=== PATIENT | female | born 1945 | race African-American/Black ===

== ENCOUNTER 2020-08-06 07:17 | Day surgery (SDC) | payer MEDICARE, MEDICAID ==
[~2020-08-06] VITALS: Ht 154.9 cm; Wt 127.3 kg
[2020-08-06 07:37] LABS: BASOPHILS 0.2 % (0-2); EOSINOPHILS 2.7 % (0-7); HEMATOCRIT 40.3 % (36.0-48.0); IMMATURE GRANULOCYTES 0.2 % (0-5); LYMPHOCYTE ABS# 1.67 10x3/uL (1.18-3.74); LYMPHOCYTES 36.9 % (15-50); MCH 27.6 pg (26.0-34.0); MCHC 32.3 g/dL (31.0-37.0); MCV 85.6 fL (80.0-100.0); MEAN PLATELET VOLUME 11.9 fL (7.4-10.4); MONOCYTES 10.6 % (2-11); NEUTROPHIL ABS# 2.23 10x3/uL (1.56-6.13); NEUTROPHILS 49.4 % (40-80); PLATELET COUNT 224 10x3/uL (130-400); RBC 4.71 10x6/uL (4.00-5.40); WBC 4.5 10x3/uL (4.8-10.8)
[2020-08-06 07:56] LABS: APTT 25.8 SECONDS (22.8-39.4); INR 1.14 (0.85-1.17); PROTIME 13.5 SECONDS (11.6-15.0)
[2020-08-06] MEDS ORDERED: ALBUTEROL SULF8.5 GM (07:59)
[2020-08-06] MEDS ORDERED: FUROSEMIDE40 MG (08:00)
[2020-08-06] MEDS ORDERED: METOPROLOL TART50 MG (08:00)
[2020-08-06] MEDS ORDERED: VOLTAREN100 GM ×2 (08:01→08:03)
[2020-08-06] MEDS ORDERED: FLUCONAZOLE150 MG (08:01)
[2020-08-06] MEDS ORDERED: PENICILLIN V P500 MG (08:02)
[2020-08-06] MEDS ORDERED: ZOFRAN ODT4 MG/UDTAB (08:02)
[2020-08-06] MEDS ORDERED: ULTRAM50 MG (08:03)
[2020-08-06] MEDS ORDERED: CLONIDINE HCL0.2 MG (08:03)
[2020-08-06] MEDS ORDERED: ALDACTONE25 MG (08:04)
[2020-08-06] MEDS ORDERED: PROTONIX40 MG (08:04)
[2020-08-06] MEDS ORDERED: LIPITOR40 MG (08:04)
[2020-08-06] MEDS ORDERED: LANTUS INS100 UNITS/ (08:06)
[2020-08-06 08:08] VITALS: BP 172/86; Ht 154.9 cm; Wt 127.3 kg
[2020-08-06 08:10] LABS: ALBUMIN 3.8 g/dL (3.4-5.0); ANION GAP 10.7 mmol/L (8-16); BILIRUBIN - TOTAL 0.9 mg/dL (0.2-1.3); CALCIUM 9.6 mg/dL (8.5-10.1); CARBON DIOXIDE 30.2 mmol/L (21.0-32.0); CREATININE - SERUM 0.9 mg/dL (0.6-1.3); POTASSIUM - SERUM 3.9 mmol/L (3.5-5.1); PROTEIN - SERUM 7.8 g/dL (6.4-8.2)
--- NOTE | 2020-08-06 09:36 | NUR ---
DC TEACHING COMPLETE. PT VERBALIZED UNDERSTANDING. ORDER FOR F/U APPT HAS BEEN FAXED. 6969 PIV REMOVED WITH CATHETER INTACT. PT VOIDED, GETTING DRESSED, GRAND DAUGHTER IN ROOM. 1013 PT DC'D VIA WC BY THIS NURSE TO POV WITH DRIVING. PT HAS ALL BELONGINGS AND DC PACKET WITH THEM.
--- NOTE | 2020-08-07 06:25 | OP ---
PATIENT NAME: EDWIN RAMESH MEDICAL RECORD: [id number] LOCATION:[facility] ADMISSION DATE: SURGEON: ADALI LAU DO DATE OF OPERATION: 08/06/2020 PROCEDURE: Colonoscopy with polypectomy. INDICATIONS FOR PROCEDURE: Personal history of colon polyps, chronic constipation, history of diverticular disease. SCOPE: Olympus video pediatric colonoscope. MEDICATIONS: Propofol 400 mg IV per Anesthesia. WITHDRAWAL TIME: 14 minutes. ESTIMATED BLOOD LOSS: Minimal. COMPLICATIONS: None. FINDINGS: Informed consent was given. The patient was made comfortable with the above medication. After reaching an adequate level of sedation by slow IV push, the patient was placed on her left side. A digital rectal examination was performed and was normal. The endoscope was then advanced under direct visualization through the rectum to the cecum, confirmed by the presence of the appendiceal orifice and ileocecal valve. The endoscope was slowly withdrawn and the mucosa was carefully examined. The prep quality was fair. There was a single polyp visualized on today's examination. It was a sessile polyp measuring approximately 9 mm in diameter and it was located in the sigmoid colon at approximately 40-45 cm from the anal verge. It was removed using EMR technique utilizing an injection of isotonic saline followed by hot snare polypectomy. The polyp was removed in 1 piece and was retrieved. There was evidence of moderate diverticulosis involving the descending and sigmoid colon with a few scattered diverticula located throughout the right side of the colon. Retroflexion was performed in the rectum with visualization of grade I internal hemorrhoids without bleeding. The endoscope was then withdrawn from the patient. The patient tolerated the procedure well and there were no complications. IMPRESSION: 1. Single polyp as described above, removed using EMR technique from the sigmoid colon. 2. Moderate diverticulosis. 3. Grade I internal hemorrhoids without bleeding. PLAN AND RECOMMENDATIONS: 1. Discharge home when recovery parameters are met. 2. Follow up biopsy specimen results. 3. High fiber diet. 4. Continue current medications. 5. Trial of Linzess 145 mcg daily for chronic idiopathic constipation. 6. Notify GI clinic if symptoms worsen or fail to improve with initiation of Linzess. 7. Recall colonoscopy in 3-5 years. OPERATIVE REPORT [id number] EDWIN RAMESH TRANSINT:[id number] Voice Confirmation ID: [id number] DOCUMENT ID: [id number] ADALI ALU DO at 0625 CC: [id number] DICTATION DATE: 08/06/20914 SEARCH ENGINE OPTIMIZATION CONSULTANT: 08/06/20 1029 [facility] 08/06/20 [address] [place] [address]
== END 2020-08-06 10:13 | disposition home or self-care (01) ==
LOC: D.OPS 07:17
PROVIDERS: ATTEND Internal Medicine Gastroenterology
DX: Z86.010 Personal history of colon polyps (principal); K59.00 Constipation, unspecified; Z87.19 Personal history of other diseases of the digestive system; K63.5 Polyp of colon; K57.30 Diverticulosis of large intestine without perforation or abscess without bleeding; K64.0 First degree hemorrhoids